=== PATIENT | male | born 1995 | race Caucasian/White ===

== ENCOUNTER → 2016-10-02 | Outpatient (CLI) | payer OTHER ==
--- NOTE | 2016-10-02 10:49 | DIAGNOSTIC IMAGING REPORT ---
RIGHT FOOT 3 VIEWS CLINICAL HISTORY: Right first toe pain. FINDINGS: 3 views of the right foot are obtained. No prior studies are available for comparison at the time of dictation. The skeletal structures are well mineralized. No fracture is seen. The joint spaces of the foot are well-maintained. Overlying soft tissues are within normal limits. IMPRESSION: No acute bony abnormality is seen in the right foot. Electronically signed by: Major Eaton M.D. 10/02/2016 10:48 AM Dictated Date/Time: 10/02/2016 10:48 AM
== END | disposition home or self-care (01) ==
LOC: C.RDSM 13:38
PROVIDERS: ATTEND Internal Medicine
DX: R01.1 Cardiac murmur, unspecified (principal); M79.671 Pain in right foot

== ENCOUNTER → 2016-10-17 | Outpatient (CLI) | payer OTHER ==
--- NOTE | 2016-10-17 07:32 | DIAGNOSTIC IMAGING REPORT ---
RIGHT LOWER EXT NONJOINT W/O HISTORY: 20 years-old Male M79.671 acute right-sided foot pain without reported trauma. Findings is most pronounced dorsally at the level of the mid foot. COMPARISON: Right foot radiographs 10/02/2016 TECHNIQUE: Multiplanar multisequence MRI of the right foot was obtained without contrast. FINDINGS: Mid foot alignment is anatomic with intraosseous component of the Lisfranc ligament identified and is intact. There is no acute fracture or dislocation. There is minimal bone marrow edema involving the medial hallux sesamoid, which may be degenerative or reactive. No significant degenerative changes are seen otherwise. There is a marker placed on the skin overlying the first tarsal metatarsal joint dorsally. There is no associated underlying fracture periosteal edema or focal marrow edema seen. There is however mild soft tissue edema at this location with thickening of the adjacent extensor hallucis longus tendon demonstrating intermediate T2 signal without high-grade or full-thickness tear identified. These findings are nicely seen on image 20 of the sagittal T1 series and image 13 of the axial series. The remaining flexor and extensor tendons appear intact. The imaged medial and lateral plantar fascial cords are intact. No evidence of intermetatarsal bursitis or perineural fibrosis. The plantar plates are intact. IMPRESSION: 1. Skin marker overlies the first tarsal metatarsal joint dorsally. There is no acute fracture or bone marrow edema at this location. There is however mild soft tissue edema with mild tendinosis of the extensor hallucis longus tendon. No high-grade partial or full-thickness tear identified. 2. Minimal marrow edema of the medial hallux sesamoid may be reactive or degenerative. The above report was generated using voice recognition software. It may contain grammatical, syntax or spelling errors. Electronically signed by: Armand Harvey M.D. 10/17/2016 7:30 AM Dictated Date/Time: 10/17/2016 7:19 AM
== END | disposition home or self-care (01) ==
LOC: C.MRI 05:58
PROVIDERS: ATTEND Internal Medicine
DX: M79.671 Pain in right foot (principal)

== ENCOUNTER → 2016-12-24 | Outpatient (CLI) | payer OTHER ==
--- NOTE | 2016-12-24 14:42 | DIAGNOSTIC IMAGING REPORT ---
R FOOT MIN 3 VIEWS CLINICAL HISTORY: 21 years-old Male presenting with RIGHT FOOT PAIN. TECHNIQUE: Frontal, oblique, and lateral views of the right foot were obtained. COMPARISON: 10/02/2016. FINDINGS: No acute fracture or malalignment. No radiographic evidence of soft tissue swelling. No degenerative change. Specifically, the first toe is normal in appearance. IMPRESSION: No osseous abnormality of the right foot. Electronically signed by: Giancarlo Chung M.D. 12/24/2016 2:40 PM Dictated Date/Time: 12/24/2016 2:39 PM
== END | disposition home or self-care (01) ==
LOC: C.RDSM 07:42
PROVIDERS: ATTEND Internal Medicine
DX: M79.671 Pain in right foot (principal)

== ENCOUNTER → 2017-01-09 | Outpatient (CLI) | payer OTHER ==
--- NOTE | 2017-01-09 08:41 | DIAGNOSTIC IMAGING REPORT ---
R FOOT MIN 3 VIEWS CLINICAL HISTORY: RIGHT FOOT PAIN COMPARISON: 01-08 DISCUSSION: No acute fractures are visualized. There are no dislocations. There is no erosive disease. There is no pathologic periostitis. IMPRESSION: No bony abnormalities identified. Electronically signed by: Angel Sorenson M.D. 01/09/2017 8:40 AM Dictated Date/Time: 01/09/2017 8:39 AM
== END | disposition home or self-care (01) ==
LOC: C.RDSM 10:20
PROVIDERS: ATTEND Internal Medicine
DX: M79.671 Pain in right foot (principal)

== ENCOUNTER → 2017-01-14 | Outpatient (CLI) | payer OTHER ==
--- NOTE | 2017-01-14 23:05 | DIAGNOSTIC IMAGING REPORT ---
MR OF THE RIGHT FOREFOOT WITHOUT IV CONTRAST CLINICAL HISTORY: Foot pain. COMPARISON STUDY: Radiographs of the right foot dated 01/09/2017. MRI of the right foot dated 10/17/2016. TECHNIQUE: MRI of the right forefoot is performed utilizing various T1 and T2-weighted sequences in the axial, sagittal, and coronal planes. IV contrast was not administered for this examination. FINDINGS: There is no MRI evidence of fracture involving the right forefoot. There is minimal marrow edema identified along the dorsal aspect of the first tarsometatarsal articulation. This likely represents mild degenerative change. There is also minimal thickening of the overlying extensor hallucis longus tendon. No full-thickness tear is seen. The joint spaces of the foot are preserved. There is minimal subcutaneous soft tissue edema seen deep to the cutaneous marker overlying the lateral aspect of the foot at the fourth and fifth tarsometatarsal joints. No underlying bony abnormality is identified. There is no evidence of Lisfranc injury. There is maintenance of normal fat within the sinus tarsi. The regional musculature is normal in bulk and signal intensity. IMPRESSION: 1. There is no MRI evidence of fracture in the right forefoot. 2. There is minimal marrow edema seen along the dorsal aspect of the first tarsometatarsal articulation, likely on a degenerative basis. 3. Minimal tendinosis of the extensor hallucis longus tendon at this site is similar to previous. No full-thickness tendon tear is seen. 4. There is minimal subcutaneous soft tissue edema seen along the lateral aspect of the foot deep to the cutaneous marker. No underlying bony abnormality is identified. Dictated: 01/14/2017 9:32 PM Transcribed: 01/14/2017 11:05 PM [email or web address] Electronically signed by: Major Eaton M.D. 01/15/2017 1:26 PM Dictated Date/Time: 01/14/2017 9:32 PM
== END | disposition home or self-care (01) ==
LOC: C.MRI 19:58
PROVIDERS: ATTEND Internal Medicine
DX: M79.671 Pain in right foot (principal)